=== PATIENT | male | born 1955 | race Caucasian/White ===

== ENCOUNTER 2018-12-01 06:41 | Day surgery (SDC) | payer BC ==
[2018-12-01] MEDS ORDERED: Propofol 200 MG/20 ML SDV IV ONE (06:42)
[2018-12-01] MEDS ORDERED: Sodium Chloride 0.9% 10 ML Syringe FLUSH PRN (06:45)
[2018-12-01] MEDS: Lactated Ringers 1,000 ML IV SCH (07:38)
[2018-12-01] MEDS: Simethicone Drops 40 MG/0.6 ML 30 ML Bottle ONE (08:01)
--- NOTE | 2018-12-01 08:24 | PCM.OPNOTE ---
- General Post-Op/Procedure Note Date of Surgery/Procedure: 12/01/18 Operative Procedure(s): c scope with biospy Findings: ascending colon polyp Pre Op Diagnosis: hx of colon polyps Post-Op Diagnosis: ascending colon polyp Anesthesia Technique: MAC Primary Surgeon: Ross Medina Anesthesia Provider: Chacho Avendano Pathology: polyp Complications: None Condition: Good Free Text/Narrative:: see dictation
--- NOTE | 2018-12-01 10:32 | OR ---
DATE OF OPERATION: 12/01/2018 SURGEON: Ross Medina MD PROCEDURE PERFORMED: Colonoscopy with cold forceps biopsy. PREOPERATIVE DIAGNOSIS: Personal history of colon polyps. POSTOPERATIVE DIAGNOSIS: Ascending colon polyp. INDICATIONS FOR PROCEDURE: This is a 63-year-old white male who presents for a followup scope, has a history of polyps DESCRIPTION OF OPERATION: After an excellent IV sedation was administered, digital rectal exam was performed. No marked abnormality was noted. Flexible colonoscope was inserted and advanced to the cecum. The prep was excellent. The following findings were noted. Ascending colon, a small polyp biopsied with cold biopsy forceps sent for permanent. Transverse colon, unremarkable. Descending colon, unremarkable. Sigmoid and rectum, unremarkable. Colon was deflated. Scope was removed. The patient tolerated the procedure well, was taken recovery room in good condition. Results by letter. /[id number] /GARYL
== END 2018-12-01 09:30 | disposition home or self-care (01) ==
LOC: FB.SDS 06:41
PROVIDERS: ATTEND Surgery
DX: Z12.11 Encounter for screening for malignant neoplasm of colon (principal); K63.5 Polyp of colon; F17.210 Nicotine dependence, cigarettes, uncomplicated; Z86.010 Personal history of colon polyps; Z88.8 Allergy status to other drugs, medicaments and biological substances; Z88.5 Allergy status to narcotic agent
CPT/HCPCS: 45380; A9270; J2001; J2704; J7120; 88305